=== PATIENT | male | born 1950 | race Caucasian/White ===

== ENCOUNTER → 2016-08-27 | Outpatient (CLI) | payer BLACK LUNG, MEDICARE ==
[~2016-08-27] MED LIST: ALBUTEROL0.63 MG/3 INH; ASPIR 8181 MG PO; BROVANA15 MCG/2 M INH; BUDESONIDE0.5 MG/2 M INH; COREG 25MG TAB25 MG PO; DALIRESP500 MCG PO; DITROPAN 5 MG TA5 MG PO; DYMISTA NASAL S23 GM; FLOMAX 0.4 MG0.4 MG PO; ISOSORBIDE MONO60 MG PO; KLOR-CON M1010 MEQ PO; LANTUS100 UNIT/1 SQ; LASIX 40 MG TAB40 MG PO; LIPITOR TAB 2020 MG PO; LISINOPRIL40 MG PO; METOPROLOL TAR100 MG PO; NEURONTIN 300300 MG PO; NEXIUM40 MG PO; NITROSTAT 0.40.4 MG SL; NORCO 10-325 T1 EACH PO; NOVOLIN 70100 UNIT/1 SQ; SIMVASTATIN40 MG PO; SPIRIVA18 MCG INH; VALIUM 5 MG TAB5 MG PO; VENTOLIN/PROVE0.5 ML INH; VIT D PO; ZYRTEC10 M3 PO
[2016-08-27 17:20] LABS: HEMOGLOBIN 13.4 gm/dl (14.0-17.5); RED BLOOD COUNT 4.76 M/UL (4.20-5.50); WHITE BLOOD COUNT 6.9 K/UL (4.5-11.0)
== END ==
LOC: OPSV2 16:04
PROVIDERS: Internal Medicine Interventional Cardiology
DX: Z01.812 Encounter for preprocedural laboratory examination (principal); R94.39 Abnormal result of other cardiovascular function study; I20.8 Other forms of angina pectoris; R06.02 Shortness of breath
CPT/HCPCS: 36415; 80048; 85025; 85610; 85730; 93005

== ENCOUNTER → 2016-08-30 | Outpatient (CLI) | payer BLACK LUNG, MEDICARE ==
[~2016-08-30] VITALS: Ht 180.3 cm; Wt 136.1 kg
== END | disposition home or self-care (01) ==
LOC: CATH 06:45
DX: I25.118 Atherosclerotic heart disease of native coronary artery with other forms of angina pectoris (principal); I25.718 Atherosclerosis of autologous vein coronary artery bypass graft(s) with other forms of angina pectoris; R94.39 Abnormal result of other cardiovascular function study; I10 Essential (primary) hypertension; E78.5 Hyperlipidemia, unspecified; E11.9 Type 2 diabetes mellitus without complications; R06.02 Shortness of breath; Z99.81 Dependence on supplemental oxygen; G47.33 Obstructive sleep apnea (adult) (pediatric); Z87.891 Personal history of nicotine dependence; Z98.61 Coronary angioplasty status; Z95.1 Presence of aortocoronary bypass graft; Z79.82 Long term (current) use of aspirin; Z79.4 Long term (current) use of insulin; Z79.891 Long term (current) use of opiate analgesic; Z79.899 Other long term (current) drug therapy; B39.2 Pulmonary histoplasmosis capsulati, unspecified; R07.89 Other chest pain
CPT/HCPCS: 82962; C1769; J1644; J2250; J3010; J7030; Q0163; Q9963